=== PATIENT | female | born 1985 | race African-American/Black ===

== ENCOUNTER 2017-11-06 05:39 | Emergency (ER) | payer MEDICAID, OTHER ==
[~2017-11-06] VITALS: Ht 180.3 cm; Wt 90.7 kg
[2017-11-06] MEDS ORDERED: methylPREDNISolone SOD SUCC 125 MG/2 ML VL IV ONE (06:30)
[2017-11-06] MEDS ORDERED: SODIUM CHLORIDE 0.9% 1,000 ML IV ONE (06:30)
[2017-11-06 07:23] LABS: Basophils # (auto) 0 uL; Basophils % (auto) 0.4 % (0.0-2.0); Eosinophils # (auto) 0.1 uL; Eosinophils % (auto) 1.2 % (0.0-7.0); Hematocrit 39.2 % (36.0-46.0); Hemoglobin 12.9 g/dL (12.2-16.2); Lymphocytes # (auto) 1.3 uL; Lymphocytes % (auto) 20.7 % (10.0-50.0); Mean Corpuscular Hemoglobin 27.6 pg (28.0-32.0); Mean Corpuscular Hgb Conc. 32.9 g/dL (32.0-36.0); Mean Corpuscular Volume 83.9 fL (80.0-100.0); Monocytes # (auto) 0.4 uL; Monocytes % (auto) 7.1 % (0.0-12.0); Neutrophils # (auto) 4.5 uL; Neutrophils % (auto) 70.6 % (37.0-80.0); Platelet Count (auto) 334 10^3/uL (140-450); Red Blood Cells 4.67 10^6/uL (4.0-5.20); Red Cell Distribution Width 16.5 % (11.8-14.3); White Blood Cell 6.3 10^3/uL (4.4-10.8)
[2017-11-06 08:12] VITALS: BP 119/78
== END 2017-11-06 08:38 | disposition home or self-care (01) ==
LOC: ER 05:39 → EDBD 05:39 → ER 08:38
DX: J45.901 Unspecified asthma with (acute) exacerbation (principal)
CPT/HCPCS: 36415; 84702; 85025; 94761; 96374; 99284; J2930; 93005

== ENCOUNTER 2019-02-03 11:21 | Emergency (ER) | payer MEDICAID ==
[~2019-02-03] VITALS: Ht 180.3 cm; Wt 107.0 kg
[2019-02-03 12:35] LABS: Urine Bacteria NONE SEEN /hpf (None Seen); Urine Blood Negative /uL (Negative); Urine Mucus FEW (None Seen); Urine Specific Gravity 1.027 (1.001-1.035); Urine WBC <1 /hpf (0 - 5)
[2019-02-03 13:28] VITALS: BP 121/71
[2019-02-03] MEDS ORDERED: FLUCONAZOLE 100 MG TAB PO ONE (13:45)
== END 2019-02-03 14:06 | disposition home or self-care (01) ==
LOC: ER 11:21
DX: R30.0 Dysuria (principal); R10.9 Unspecified abdominal pain; J45.909 Unspecified asthma, uncomplicated; F17.200 Nicotine dependence, unspecified, uncomplicated
CPT/HCPCS: 81001; 99283; J7030